=== PATIENT | male | born 1945 | race Caucasian/White ===

== ENCOUNTER 2017-09-30 02:13 | Day surgery (SDC) | payer MEDICARE, OTHER ==
--- NOTE | 2017-09-29 09:30 | EKG ---
FACILITY: [facility] PATIENT NAME: EMELYN HAMMER : [id number] MR: [id number] V: [id number] EXAM DATE: ORDERING PHYSICIAN: FE DENNEY TECHNOLOGIST: LYSSA Justin Reason : PRE-OP Blood Pressure : / mmHG Vent. Rate : 066 BPM Atrial Rate : 066 BPM P-R Int : 192 ms QRS Dur : 086 ms QT Int : 404 ms P-R-T Axes : 023 -11 003 degrees QTc Int : 423 ms Sinus rhythm Left axis deviation Nonspecific T wave flattening Abnormal ECG No previous ECGs available Confirmed by ELAINA ACOSTA ([id number]) on 09/29/2017 11:36:34 AM Referred By: ОЛЕГ Confirmed By:ELAINA ACOSTA
[2017-09-29 09:35] LABS: PLATELET COUNT, AUTOMATED 283 K/uL (150-450)
[~2017-09-30] VITALS: Ht 175.3 cm; Wt 113.4 kg
[~2017-09-30 02:13] MED LIST: ASCO-182 PO; ASPI-757 PO; ATOR10TA24 PO; AZEL137S NS; CAL1L CHEW; CYAN100T25 PO; DOCU-416 PO; ECHI80CA2 PO; ENOX40DI8 SQ; METF-420 PO; MOM PO; OMEG-11 PO; ONDA4TAB PO; OXYC-865 PO; POLY17PO25 PO; WARF10TA34 PO; WARF7.5T32 PO; [UNRECOGNIZED DRUG - CODE] TP
[2017-09-30] MEDS ORDERED: ROPIVACAINE 0.2% 20 ML VIAL ONE ×2 (06:50→09:46)
[2017-09-30 07:12] VITALS: BP 138/83
[2017-09-30] MEDS ORDERED: PROPOFOL EMUL(*) 10MG/ML 20 ML 40 ML ONE (07:37)
[2017-09-30] MEDS ORDERED: METOCLOPRAMIDE 10 MG/2 ML SDV ONE (07:37)
[2017-09-30] MEDS ORDERED: ONDANSETRON 4 MG/2 ML VIAL ONE (07:37)
[2017-09-30] MEDS ORDERED: LIDOCAINE MPF 1% 5 ML VIAL ONE (07:37)
[2017-09-30] MEDS ORDERED: DEXAMETHASONE SOD 4 MG/ML VIAL ONE (07:38)
[2017-09-30] MEDS ORDERED: CELECOXIB 200 MG CAP PO ONE (08:00)
[2017-09-30] MEDS ORDERED: NORMOSOL R SOLN(*) 1000 ML BAG 1,000 ML IV PRN (08:00)
[2017-09-30] MEDS ORDERED: MIDAZOLAM 2 MG/2 ML VIAL IVP PRN (08:00)
[2017-09-30] MEDS ORDERED: LIDOCAINE/SOD BICARB 8.4% SYR ID ONE (08:00)
[2017-09-30] MEDS ORDERED: FAMOTIDINE 20 MG TAB PO ONE (08:00)
[2017-09-30] MEDS ORDERED: CLINDAMYCIN(*) 900 MG/NS 50 ML 50 ML IVPB ONE (08:00)
[2017-09-30] MEDS ORDERED: fentaNYL CITR 100 MCG/2 ML AMP ONE (09:01)
[2017-09-30] MEDS ORDERED: ROPIVACAINE 0.5% 20 ML VIAL ONE (09:46)
[2017-09-30] MEDS ORDERED: LIDOCAINE 1%MDV(*)200 MG/20 ML 1 ML ONE (09:46)
[2017-09-30] MEDS ORDERED: OXYC-865 PO (10:36)
--- NOTE | 2017-09-30 10:37 | RADIOLOGY IMAGING REPORT ---
FACILITY: [facility] PATIENT NAME: Manuel Babb : 1945 MR: [id number] V: [id number] EXAM DATE: ORDERING PHYSICIAN: FE DENNEY TECHNOLOGIST: Location: [facility] Patient: Manuel Babb : 1945 Visit/Account:[id number] Date of Sevice: 09/30/2017 Technique: C-ARM FLUORO 1 HR HISTORY: ORIF RIGHT ANKLE Comparison studies: None FINDINGS: 4 operative fluoroscopic images were obtained of the right ankle. The patient is status po st lateral plate and screw fixation of a distal fibular fracture. There are 2 syndesmotic screws not ed. Small ossific densities are seen inferior to the medial malleolus consistent with avulsion injur y. Fluoroscopy time: 44.5 seconds IMPRESSION: 1. Intraoperative fluoroscopic radiographs as described above. See operative report for further det ails. Report Dictated By: Marquis Richard DO at 09/30/2017 10:33 AM Report E-Signed By: Marquis Richard DO at 09/30/2017 10:34 AM WSN:[id number]
--- NOTE | 2017-09-30 11:36 | OPERATIVE REPORT 1 ---
EVENT DATE: September 30, 2017 SURGEON: Ric Null MD ANESTHESIOLOGIST: Manuel Eric MD ANESTHESIA: General plus block. KAITARA TARAKA: MEDHAT Castillo PREOPERATIVE DIAGNOSIS Right ankle trimalleolar fracture. POSTOPERATIVE DIAGNOSIS Right ankle trimalleolar fracture. PROCEDURE PERFORMED Open reduction, internal fixation of a right ankle trimalleolar fracture with indirect reduction of the posterior malleolus and a syndesmotic fixation. FINDINGS The patient had a displaced fracture of the right distal fibula, which was amenable for fixation. ESTIMATED BLOOD LOSS Minimal. DRAINS Drain. COMPLICATIONS None. IMPLANTS AOS 9 hole semitubular plate with one 3.5 locking screw at the top and then the rest 3.5 nonlocking screws in the bicortical screws and one 4.0 syndesmotic screw. SPECIMENS None. TOURNIQUET TIME About 45 minutes. INDICATIONS AND HISTORY This patient is a 72-year-old male who sustained a twisting and inversion injury with a rotational moment down in [place] last week. He was found to have a distal fibular fracture with a fracture dislocation of the ankle and a trimalleolar equivalent fracture with a medial deltoid ligament disruption, and therefore was reduced and put in a splint. He followed up with me, as he wanted me to do the fixation for this and do the open reduction internal fixation associated with the ankle. The risks and benefits were discussed with the patient. Informed consent was obtained. We also talked about the implications of the syndesmotic screws, and also the fact that they will likely need to be removed in the near future, and so therefore we went over the risks and benefits of associated with that. Informed consent was obtained at the last clinic visit. He understands he may have further complications or issues associated with it. DESCRIPTION OF PROCEDURE The patient was brought into the operating room and he and the procedure were both verified. He was placed supine on the operative table and induced and intubated by anesthesia. After being given a popliteal block, the right lower extremity was then prepped and draped in usual fashion and a time out was observed, verifying correct patient and procedure. The standard incision was made over the fibula itself on the lateral side and centered over the spiral fracture itself, and once I was able to go through the skin and subcutaneous tissue, I was able to identify the fracture fragments themselves and then identify the distal and proximal fragments with the fibular spiral oblique fracture. Once I was able to get this reduced with a clamp, I was then able to place a 9 hole semitubular plate from the AOS system on this. It was put in a purposeful diagonal angle, because that is where I could get it with the clamp without disturbing the clamp. Since I had such good anatomical reduction, this was left in place. I then fixed it both proximally and distally in order to hold it in place with a unicortical distal screw distally, and then two bicortical proximal screws. Once I was able to do this, I was then able to verify with C arm images that everything was in good position and it was well aligned. It was noted that the proximal part of the plate was just slightly off the bone, but we could still get a screw in it, so therefore it was accepted. I then put in two more proximal screws and then the two syndesmotic screws. The two more proximal screws were placed without any difficulty. I then put a clamp from medial to lateral, which was a large executive clamp going from one side to the other in order to reduce the syndesmosis, as we still had widening associated with this, and therefore once I was able to clamp that down, I was then able to place two syndesmotic screws, one through the oblique hole in the distal aspect of the plate, which was with a 16 mm 4.[address] the [address] through here tricortically, almost tetracortically, and then a tricortical 50 mm 3.5 screw was placed in the screw hole above it. Once this did this, it held the syndesmosis in place. I then under fluoro was able to stress syndesmosis, and saw no signs of problems or issues associated with this, and no signs of gapping associated with it. Therefore, I then irrigated with copious amounts of saline, took final x-ray images. The posterior malleolus was indirectly reduced and looked in good position, so therefore it did not need to be addressed. The medial malleolus had a better relationship, and so therefore we did not do anything with the deltoid ligament. I then irrigated again with copious amounts of saline, then closed the periosteum with a 2-0 Vicryl. This was then followed by a 3-0 Vicryl in the subcutaneous tissue, and then a 3-0 nylon in the skin in interrupted mattress type fashion. The wound was then anesthetized with ropivacaine, dressed with Xeroform, gauze 4x4's and a soft dressing. The patient was put in a splint, and then awakened and extubated and transferred to PACU in stable condition. The tourniquet was let down after about 45 minutes. ERROL
[2017-09-30 11:41] VITALS: BP 129/75
[2017-09-30 11:56] VITALS: BP 122/73
[2017-09-30 11:57] VITALS: BP 128/81
== END 2017-09-30 11:40 | disposition home or self-care (01) ==
LOC: OR 02:13
PROVIDERS: ATTEND Orthopaedic Surgery
DX: S82.854A Nondisplaced trimalleolar fracture of right lower leg, initial encounter for closed fracture (principal); E11.9 Type 2 diabetes mellitus without complications
CPT/HCPCS: 27823; 36415; 36416; 76000; 82948; 83036; 85025; 93005; A9270; C1713; J1100; J2001; J2250; J2405; J2704; J2765; J2795; J3010; J3490; 82040; 82247; 82310; 82374; 82435; 82565; 82947; 84075; 84132; 84155; 84295; 84450; 84460; 84520

== ENCOUNTER → 2018-04-23 | Outpatient (CLI) | payer MEDICARE, OTHER ==
[~2018-04-23] MED LIST changes: +CYAN50TA3 PO; +DIPH-740 PO; -METF-420 PO; +METF-452 PO; +OXYGENHOME INH; +THIA50TA10 PO; +WARF10TA10 PO; -WARF10TA34 PO; +WARF7.5T13 PO; -WARF7.5T32 PO; +WHEA1POW10 PO
[2018-04-23 16:01] LABS: PLATELET COUNT, AUTOMATED 222 K/uL (150-450)
[2018-04-23 16:19] LABS: LDL CHOLESTEROL 91 mg/dl
== END ==
LOC: LAB 15:35
PROVIDERS: ATTEND Family Medicine
DX: E11.9 Type 2 diabetes mellitus without complications (principal); G62.9 Polyneuropathy, unspecified; Z72.89 Other problems related to lifestyle
CPT/HCPCS: 36415; 82607; 83036; 85025; G0472; 82040; 82247; 82310; 82374; 82435; 82465; 82565; 82947; 83718; 84075; 84132; 84155; 84295; 84450; 84460; 84478; 84520; 86803

== ENCOUNTER → 2018-12-03 | Outpatient (CLI) | payer MEDICARE, OTHER ==
[~2018-12-03] MED LIST changes: -CYAN100T25 PO; +CYAN100T26 PO; +THIA50TA PO; -THIA50TA10 PO
[2018-12-03 12:01] LABS: PLATELET COUNT, AUTOMATED 205 K/uL (150-450)
== END ==
LOC: LAB 11:37
PROVIDERS: ATTEND Family Medicine
DX: E11.9 Type 2 diabetes mellitus without complications (principal)
CPT/HCPCS: 36415; 82043; 82310; 82374; 82435; 82565; 82947; 83036; 84132; 84295; 84520; 85025